=== PATIENT | female | born 1995 | race Caucasian/White ===

== ENCOUNTER 2019-07-28 11:28 | Emergency (ER) | payer MEDICAID ==
[~2019-07-28] VITALS: Ht 167.6 cm; Wt 59.2 kg
[~2019-07-28 11:28] MED LIST: DOCU-131 PO; IBUP-1222 PO; OXYC-302 PO; PREN1TAB56 PO
[2019-07-28] MEDS ORDERED: SODIUM CHLORIDE FLUSH 10ML SYR IVF ONE (12:00)
[2019-07-28] MEDS ORDERED: ONDANSETRON 2MG/ML, 2ML IVPush ONE (12:00)
[2019-07-28] MEDS ORDERED: methylPREDNISolone SOD SUCC 125 MG/2 ML IVPush ONE (12:00)
[2019-07-28] MEDS ORDERED: AMPICILLIN/SULBACTAM 3 GM in SODIUM CHLORIDE 0.9% 100 ML IV ONE (12:00)
[2019-07-28] MEDS ORDERED: ONDANSETRON 2MG/ML, 2ML ONE (12:02)
[2019-07-28] MEDS ORDERED: MORPHINE SULFATE 4 MG/ML, 1ML ONE ×2 (12:02→13:19)
[2019-07-28] MEDS ORDERED: methylPREDNISolone SOD SUCC 125 MG/2 ML ONE (12:02)
[2019-07-28] MEDS: MORPHINE SULFATE 4 MG/ML, 1ML IVPush PRN ×2 (12:12→13:28)
[2019-07-28 13:16] VITALS: BP 126/87
--- NOTE | 2019-07-28 13:30 | NUR ---
[facility] DRAINED AT BEDSIDE WITH PROVIDER. PT TOLERATED WELL.
[2019-07-28] MEDS ORDERED: BENZOCAINE AEROSOL SPRAY 20%, 60ML ONE (13:40)
--- NOTE | 2019-07-28 13:55 | NUR ---
dr jarvis spoke with dr esparza
== END 2019-07-28 14:30 | disposition home or self-care (01) ==
LOC: ED 12:07
DX: J36 Peritonsillar abscess (principal)
CPT/HCPCS: 42700; 96365; 96375; 96376; 99284; J0295; J2270; J2405; J2930

== ENCOUNTER 2019-08-27 12:18 | Emergency (ER) | payer MEDICAID ==
[~2019-08-27] VITALS: Ht 167.6 cm; Wt 62.0 kg
[2019-08-27 13:49] VITALS: BP 118/76
== END 2019-08-27 13:50 | disposition home or self-care (01) ==
LOC: ED 13:30
DX: J36 Peritonsillar abscess (principal)
CPT/HCPCS: 99283